=== PATIENT | male | born 1955 | race Hispanic/Latino ===

== ENCOUNTER 2023-07-16 08:34 | Emergency (ER) | payer MEDICARE ==
[2023-07-16] MEDS ORDERED: Ketorolac Tromethamine 30 MG (1 mL) VIAL ONE (09:44)
== END 2023-07-16 10:01 | disposition home or self-care (01) ==
LOC: ERS 08:34
DX: K64.4 Residual hemorrhoidal skin tags (principal)
CPT/HCPCS: 96372; 99283; J1885